=== PATIENT | female | born 1955 | race Asian ===

== ENCOUNTER 2017-08-06 19:51 | Emergency (ER) | payer BC ==
[~2017-08-06] VITALS: Ht 152.4 cm; Wt 52.3 kg
[2017-08-06 19:55] VITALS: BP 158/74; TEMP 98.3
[2017-08-06] MEDS ORDERED: EVISTA 60MG60 MG/TAB PO (19:58)
[2017-08-06] MEDS ORDERED: CALCIUM CARBON650 M2 (19:59)
[2017-08-06] MEDS ORDERED: BENADRYL25 M2 PO (19:59)
[2017-08-06] MEDS ORDERED: VITAMIN D32000 IU (20:00)
[2017-08-06 20:41] VITALS: PULSE 80
== END 2017-08-06 20:43 | disposition home or self-care (01) ==
LOC: COL.ER 19:51
DX: H11.32 Conjunctival hemorrhage, left eye (principal); M81.0 Age-related osteoporosis without current pathological fracture; G43.909 Migraine, unspecified, not intractable, without status migrainosus